=== PATIENT | female | born 1960 ===

== ENCOUNTER 2017-06-07 10:26 | Emergency (ER) | payer MEDICAID ==
[2017-06-07 10:36] VITALS: TEMP 99.9; O2SAT 99
[2017-06-07] MEDS ORDERED: Sodium Chloride 0.9% 1,000 ML IV ONE (11:10)
[2017-06-07 11:24] LABS: BASO # 0.1 K/uL (0.0-0.2); BASO % 0.6 % (0.0-2.0); HEMOGLOBIN 13.4 g/dL (11.0-16.0); LYMPH # 1.5 K/uL (1.0-4.3); LYMPH % 16.4 % (20.0-40.0); MEAN CELL VOLUME 87.7 fL (81.0-99.0); MEAN CORPUSCULAR HEMOGLOBIN 30.4 pg (27.0-31.0); MEAN CORPUSCULAR HGB CONC 34.7 g/dL (33.0-37.0); MEAN PLATELET VOLUME 10.3 fL (7.2-11.7); MONO # 0.6 K/uL (0.0-0.8); MONO % 6.9 % (0.0-10.0); NEUT # 6.8 K/uL (1.8-7.0); NEUT % 76.1 % (50.0-75.0); RBC 4.4 Mil/uL (3.80-5.20); RED CELL DISTRIBUTION WIDTH 13.1 % (11.5-14.5); WHITE BLOOD COUNT 8.9 K/uL (4.8-10.8)
[2017-06-07 11:37] LABS: ALB/GLOB RATIO 1.2 (1.0-2.1); ALBUMIN 4.2 g/dL (3.5-5.0); ALT/SGPT 39 U/L (9-52); AMYLASE 75 U/L (30-110); AST/SGOT 32 U/L (14-36); BLOOD UREA NITROGEN 17 mg/dL (7-17); CALCIUM 8.9 mg/dl (8.6-10.4); GFR AFRICAN-AMERICAN > 60; GFR NON-AFRICAN AMERICAN > 60; LIPASE 134 U/L (23-300)
[2017-06-07 11:47] LABS: INR 1.2; PROTHROMBIN TIME 13.4 SECONDS (9.7-12.2)
--- NOTE | 2017-06-07 11:57 | C.PDOC ---
History Of Present Illness 56 yo female w/o significant PMHx come in for evaluation of bodyaches, malaise, intermittent headache, dizziness for past 2-3 days. Pt sts, this AM developed epigastric/RUQ pain, sharp, localized, (+) nausea. Otherwise, pt denies fever, chills, denies worse headache of life, neck pain, CP, SOB, dyspnea, wheezing, vomiting, diarrhea, UTI sx. Ambulate to Ed for evaluation, not in nay apparent distress. Time Seen by Provider: 06/07/17 10:44 Chief Complaint (Nursing): Abdominal Pain History Per: Patient Onset/Duration Of Symptoms: Gradual Past Medical History Reviewed: Historical Data, Nursing Documentation, Vital Signs Vital Signs: Last Vital Signs Temp 99.9 F H 06/07/17 10:36 Pulse 102 H 06/07/17 10:36 Resp 20 06/07/17 10:36 BP 105/71 06/07/17 10:36 Pulse Ox 99 06/07/17 11:59 - Medical History PMH: Hyperthyroidism Surgical History: - [facility] Procedures COLONOSCOPY (06/03/14) ESOPHAGOGASTRODUODENOSCOPY [EGD] W/CLOSED BIOPSY (06/03/14) Family History: States: Unknown Family Hx - Social History Hx Tobacco Use: No Hx Alcohol Use: No Hx Substance Use: No - Immunization History Hx Tetanus Toxoid Vaccination: No Hx Influenza Vaccination: No Hx Pneumococcal Vaccination: No Review Of Systems Except As Marked, All Systems Reviewed And Found Negative. Constitutional: Positive for: Malaise. Negative for: Fever, Chills Eyes: Negative for: Vision Change ENT: Negative for: Ear Discharge, Nose Discharge, Nose Congestion, Throat Pain, Throat Swelling Cardiovascular: Negative for: Chest Pain, Palpitations, Light Headedness Respiratory: Negative for: Cough, Shortness of Breath, Wheezing Gastrointestinal: Positive for: Nausea, Abdominal Pain. Negative for: Vomiting , Diarrhea Genitourinary: Negative for: Dysuria, Frequency, Incontinence Musculoskeletal: Negative for: Neck Pain, Back Pain Skin: Negative for: Rash Neurological: Positive for: Headache, Dizziness. Negative for: Weakness, Numbness, Altered Mental Status Physical Exam - Physical Exam Appears: Well, Non-toxic, No Acute Distress Skin: Normal Color, Warm, Dry, No Rash Head: Normacephalic Eye(s): bilateral: PERRL Nose: No Flaring, No Discharge Oral Mucosa: Moist, No Drooling Throat: No Erythema, No Drooling Neck: Trachea Midline, Supple Cardiovascular: Rhythm Regular, No Murmur, No JVD Respiratory: No Decreased Breath Sounds, No Accessory Muscle Use, No Stridor, No Wheezing Gastrointestinal/Abdominal: Soft, Tenderness (epigastric, RUQ, moderate), No Distention, No Guarding, No Rebound Back: No CVA Tenderness Extremity: Normal ROM, No Deformity, No Swelling Neurological/Psych: Oriented x3, Normal Speech ED Course And Treatment - Laboratory Results Result Diagrams: 06/07/17 11:19 06/07/17 11:19 Lab Interpretation: No Acute Changes O2 Sat by Pulse Oximetry: 99 Pulse Ox Interpretation: Normal - CT Scan/US Gallblader US Other Rad Studies (CT/US): Read By Radiologist CT/US Interpretation: HISTORY: RUQ pain. COMPARISON: None. TECHNIQUE: Grayscale imaging was performed. FINDINGS: LIVER: Measures 15.8 cm in length. There is diffuse increased echogenicity of the liver parenchyma. No mass. No intrahepatic bile duct dilatation. GALLBLADDER: There are no gallstone, wall thickening or pericholecystic fluid. The sonographic Jenkins's sign is negative. COMMON BILE DUCT: Measures 3.0 mm. No stones. No dilatation. PANCREAS: Unremarkable as visualized. No mass. No ductal dilatation. RIGHT KIDNEY: Measures 9.3 cm in length. There is diffuse increased echogenicity. No calculus, mass, or hydronephrosis. AORTA: No aneurysmal dilatation. IVC: Unremarkable. OTHER FINDINGS: None . IMPRESSION : Fatty liver. No cholelithiasis or biliary dilatation. Suspect chronic renal parenchymal disease. Dedicated retroperitoneal ultrasound on a nonemergent basis is recommended for complete evaluation of the kidneys. Progress Note: On re-evlauation, pt is faberile, hemodynamicaly stable. NOn- toxic. Tolerate Po well in ED. Neck: Supple. ENT:no acute findings. Lungs: CTA B/L, BS equal B/L. CVS: (+)S1S2, reg. Abd; benign, (-) guarding, (-) rebound , (-) localized tenderness. back: (-) CVA tenderness. Blood owrk review and appears normal. Imaging review, no acute findings. UA- normal study. Pt has clinical findings c/w epigastric pain, malaise r/o viral illness. Pt advised to F/U with PMD in 2 days for re-evaluation and further tx as need. return if any new changes. Disposition Counseled Patient/Family Regarding: Studies Performed, Diagnosis, Need For Followup, Rx Given - Disposition Referrals: Willa Dacosta MD [Medical Doctor] - Disposition: HOME/ ROUTINE Disposition Time: 14:11 Condition: STABLE Additional Instructions: Encourage fluids Diet restriction for 2 days Follow up with PMD in 2-3 days for re-evaluation. return to ED if any worsening or new changes. Instructions: Viral Gastroenteritis, Adult (DC) Forms: [employer] ([place]an), Work Excuse Print Language: IRISH - Clinical Impression Clinical Impression: Abdominal pain, Malaise
--- NOTE | 2017-06-07 13:29 | US ---
HISTORY: RUQ pain COMPARISON: None. TECHNIQUE: Grayscale imaging was performed. FINDINGS: LIVER: Measures 15.8 cm in length. There is diffuse increased echogenicity of the liver parenchyma. No mass. No intrahepatic bile duct dilatation. GALLBLADDER: There are no gallstone, wall thickening or pericholecystic fluid. The sonographic Jenkins's sign is negative. COMMON BILE DUCT: Measures 3.0 mm. No stones. No dilatation. PANCREAS: Unremarkable as visualized. No mass. No ductal dilatation. RIGHT KIDNEY: Measures 9.3 cm in length. There is diffuse increased echogenicity. No calculus, mass, or hydronephrosis. AORTA: No aneurysmal dilatation. IVC: Unremarkable. OTHER FINDINGS: None . IMPRESSION: Fatty liver. No cholelithiasis or biliary dilatation. Suspect chronic renal parenchymal disease. Dedicated retroperitoneal ultrasound on a nonemergent basis is recommended for complete evaluation of the kidneys.
[2017-06-07] MEDS ORDERED: Pantoprazole 40 mg EC Tab PO STA (13:59)
[2017-06-07] MEDS ORDERED: Pantoprazole 40 mg EC Tab PO ONE (14:30)
[2017-06-07] MEDS ORDERED: Sodium Chloride 0.9% 1,000 ML ONE (14:30)
[2017-06-07 15:03] LABS: SQUAMOUS EPITHIAL < 1 /hpf (0-5); URINE BACTERIA OCC (<OCC); URINE BILIRUBIN NEGATIVE (NEGATIVE); URINE BLOOD NEGATIVE (NEGATIVE); URINE CLARITY Clear (Clear); URINE COLOR Yellow (YELLOW); URINE GLUCOSE (UA) NORMAL (Normal); URINE LEUKOCYTE ESTERASE NEG Leu/uL (Negative); URINE PROTEIN NEGATIVE (NEGATIVE); URINE UROBILINOGEN NORMAL mg/dL (0.2-1.0)
[2017-06-07 15:13] VITALS: BP 111/69; PULSE 87; RESP 16
== END 2017-06-07 15:33 | disposition home or self-care (01) ==
LOC: C.ER 10:26
DX: R10.13 Epigastric pain (principal); R53.81 Other malaise
CPT/HCPCS: 76705; 80053; 81001; 82150; 83690; 85025; 85610; 85730; 87040; 87086; 87181; 87804; 99285; J7040

== ENCOUNTER 2017-10-12 08:02 | Day surgery (SDC) | payer MEDICAID, OTHER ==
--- NOTE | 2017-10-12 10:17 | CP.SDSHP ---
Same Day Surgery H & P - History Proposed Procedure: US guided FNA of left thyroid nodule Pre-Op Diagnosis: Left thyroid nodule - Allergies Allergies: Allergies No Known Allergies Allergy (Verified 10/11/17 07:32) - Physical Exam Mental Status: Alert & Oriented x3 Neuro: WNL Heart: WNL Lungs: WNL - Impression Impression: Pt with a complex 1.5 cm left thyroid nodule. Plan US guided FNA. Pt. Evaluated Today:Candidate for Anesthesia & Procedure: No Short Stay Discharge - Short Stay Discharge Admitting Diagnosis/Reason for Visit: NONTOXIC DIFFUSE GOITER Disposition: HOME/ ROUTINE
--- NOTE | 2017-10-12 10:18 | PCM.SURG1 ---
Surgeon's Initial Post Op Note - Surgeon's Notes Surgeon: Calvin Wilde MD Marketing Database Analyst: NONE Type of Anesthesia: Local Pre-Operative Diagnosis: Left thyroid nodule Operative Findings: Pt with a 1.5 cm left thyroid nodule. Post-Operative Diagnosis: Left thyroid nodule Operation Performed: US guided FNA Specimen/Specimens Removed: 25 g FNA x 5 passes Estimated Blood Loss: EBL {In ML}: 1 Blood Products Given: N/A Drains Used: No Drains Post-Op Condition: Good Date of Surgery/Procedure: 10/12/17 Time of Surgery/Procedure: 10:15
--- NOTE | 2017-10-12 14:04 | US ---
PROCEDURE: Date of Procedure: 10/12/2017 PROCEDURE: 1. Ultrasound guided FNA of left thyroid nodule, CPT 86872 2. Ultrasound guidance for FNA, 90336 Medications: 3cc 1% Lidocaine HISTORY: Enlarged left thyroid nodule. TECHNIQUE: Following informed consent and procedure time-out, a limited ultrasound patient's neck confirmed the presence of a 1.4 cm complex left thyroid nodule which is predominantly solid. After the patient's neck was prepped and draped in the usual sterile fashion, the skin was anesthetized with 1% lidocaine. Ultrasound-guided fine needle aspiration was then performed of the dominant left thyroid nodule. A total of 4 passes were made into the nodule with 25 gauge needle under ultrasound guidance. The FNA specimen was sent for routine pathology and genetics. Post biopsy ultrasound showed no hematoma. IMPRESSION: Ultrasound-guided FNA of the dominant left thyroid nodule.
== END 2017-10-12 11:00 | disposition home or self-care (01) ==
LOC: C.SPRAD 08:02
PROVIDERS: ATTEND Radiology Vascular & Interventional Radiology
DX: E04.0 Nontoxic diffuse goiter (principal); R25.1 Tremor, unspecified